=== PATIENT | male | born 1940 | race Caucasian/White ===

== ENCOUNTER 2019-05-19 07:37 | Inpatient (IN) ==
[2019-05-13 18:39] LABS: Appearance,Urine CLEAR; Bilirubin,Urine NEG (NEG); Color,Urine YELLOW; Culture Indicated,Urine NO; Glucose,Urine (UA) NEGATIVE (NEG); Ketones,Urine NEG (NEG); Leukocyte Esterase,Urine NEG /uL (NEG); Nitrate,Urine NEG (NEG); Protein,Urine NEG (NEG); Specific Gravity,Urine 1.023 (1.000-1.035); Urine Blood NEG mg/dL (<0.03); Urobilinogen,Urine NEG (NEG)
[2019-05-13 20:15] LABS: Basophils # (Auto) 0 K/mcL (0.0-0.3); Basophils % (Auto) 0.7 % (0.0-2.0); Eosinophils # (Auto) 0.8 K/mcL (0.0-0.7); Eosinophils % (Auto) 10.8 % (0.0-7.0); Granulocytes % (Auto) 58.7 % (38.0-78.0); Hematocrit 45.8 % (41.0-55.0); Hemoglobin 15.1 g/dL (13.5-16.5); Lymphocytes # (Auto) 1.5 K/mcL (1.5-4.8); Lymphocytes % (Auto) 21.3 % (15.5-49.0); Mean Cell Volume 89.9 fL (80.0-100.0); Mean Corpuscular HGB Conc 32.9 g/dL (31.0-36.0); Mean Platelet Volume 8.4 fL (7.4-10.4); Monocytes # (Auto) 0.6 K/mcL (0.1-0.9); Monocytes % (Auto) 8.5 % (1.0-12.0); Platelet Count 238 K/mcL (140-440); Red Cell Distribution Width 12.8 % (11.5-14.5); WBC 7.1 K/mcL (4.5-11.0)
[2019-05-13 20:45] LABS: Estimated Average Glucose(eAG) 183 mg/dL
[2019-05-13 21:24] LABS: Blood Urea Nitrogen 32 mg/dl (8-23); Calcium 10.2 mg/dl (8.6-10.4); Carbon Dioxide 22 mmol/L (22-30); Chloride 100 mmol/L (96-108); Glomerular Filtration Rate 44; Glucose 87 mg/dL (70-105)
[~2019-05-19 07:37] MED LIST: CELECOXIB 200 MG CAPSULE PO SCH; IPRATROPIUM/ALBUTEROL 3 ML AMPUL.NEB NEB PRN; PREGABALIN 75 MG CAPSULE PO SCH; SCOPOLAMINE 1 PATCH PATCH TOPICAL PRN; ceFAZolin 2 GM in DEXTROSE 5% IN WATER 50 ML IV SCH; oxyCODONE 10 MG TAB.ER.12H PO SCH
[2019-05-19] MEDS ORDERED: BUPIVACAINE W/EPI 0.5% 50 ML VIAL IJ ONE (11:11)
[2019-05-19] MEDS ORDERED: TRANEXAMIC ACID 1,000 MG/10 ML VIAL IV ONE (11:15)
[2019-05-19] MEDS ORDERED: KETAMINE 100 MG/ML ML IV ONE (11:15)
[2019-05-19] MEDS ORDERED: DEXAMETHASONE 10 MG/ML VIAL IV ONE (11:15)
[2019-05-19] MEDS ORDERED: SUCCINYLCHOLINE 20 MG/ML ML IV ONE (11:15)
[2019-05-19] MEDS ORDERED: PHENYLEPHRINE 10 MG/ML VIAL IV ONE (11:15)
[2019-05-19] MEDS ORDERED: PROPOFOL 200 MG/20 ML VIAL IV ONE (11:15)
[2019-05-19] MEDS ORDERED: GLYCOPYRROLATE 0.2 MG/ML VIAL IV ONE (11:15)
[2019-05-19] MEDS ORDERED: fentaNYL 250 MCG/5 ML VIAL IV ONE (11:15)
[2019-05-19] MEDS ORDERED: ePHEDrine 50 MG/ML AMPUL IV ONE (11:15)
[2019-05-19] MEDS ORDERED: LIDOCAINE HCL/PF 100 MG/5 ML SYRINGE IV ONE (11:15)
[2019-05-19] MEDS ORDERED: ONDANSETRON 4 MG/2 ML VIAL IV ONE (11:15)
[2019-05-19] MEDS ORDERED: IPRATROPIUM/ALBUTEROL 3 ML AMPUL.NEB NEB PRN (12:33)
[2019-05-19] MEDS ORDERED: diphenhydrAMINE 50 MG/ML VIAL IV PRN (12:33)
[2019-05-19] MEDS ORDERED: PROMETHAZINE 25 MG/ML VIAL IV PRN (12:33)
[2019-05-19] MEDS ORDERED: FLUMAZENIL 0.1 MG/ML ML IV PRN (12:33)
[2019-05-19] MEDS ORDERED: MEPERIDINE 25 MG/ML SYRINGE IV PRN (12:33)
[2019-05-19] MEDS ORDERED: ONDANSETRON 4 MG/2 ML VIAL IV PRN ×2 (12:33→13:11)
[2019-05-19] MEDS ORDERED: NALOXONE HCL 0.4 MG/ML VIAL IV PRN (12:33)
[2019-05-19] MEDS ORDERED: METHOCARBAMOL 1,000 MG/10 ML VIAL IV PRN (12:33)
[2019-05-19] MEDS ORDERED: BENZOCAINE/MENTHOL 1 LOZENGE PO PRN ×2 (12:33→13:11)
[2019-05-19] MEDS ORDERED: ACETAMINOPHEN 1,000 MG/100 ML BOTTLE IV ONE (12:33)
[2019-05-19] MEDS ORDERED: LACTATED RINGERS 250 ML IV PRN (12:33)
[2019-05-19] MEDS ORDERED: LACTATED RINGERS 1,000 ML IV SCH (12:45)
[2019-05-19] MEDS ORDERED: POLYETHYLENE GLYCOL 3350 17 GM PACKET PO PRN (13:11)
[2019-05-19] MEDS ORDERED: MAGNESIUM HYDROXIDE 30 ML ORAL.SUSP PO PRN (13:11)
[2019-05-19] MEDS ORDERED: TRANEXAMIC ACID 1,000 MG/10 ML VIAL IV SCH (13:11)
[2019-05-19] MEDS ORDERED: FLEETS ADULT ENEMA PR PRN (13:11)
[2019-05-19] MEDS ORDERED: HYDROmorphone 2 MG/ML VIAL IV PRN (13:11)
[2019-05-19] MEDS ORDERED: BISACODYL 10 MG SUPP.RECT PR PRN (13:11)
[2019-05-19] MEDS ORDERED: KETOROLAC 15 MG/ML VIAL IV PRN (13:11)
--- NOTE | 2019-05-19 13:11 | Brief Operative Note ---
Date of procedure: 05/19/19 Pre-op diagnosis: R shoulder massive irrepairable RTC tear, biceps tendonopathy Post-op diagnosis: same Procedure: 1)R reverse total shoulder arthroplasty 2)biceps tenodesis Grafts/Implants: Yes (Tornier 6 long stem, 0 tray, 6mm insert, 25 lat base, 36 inf off gleno) Anesthesia: GETA Findings: absent cuff Complications: none Surgeon: Maikel Martin Small Electric Engine Technician: Rommel Craig Estimated blood loss (cc): 300 Condition: stable Disposition: PACU
[2019-05-19] MEDS ORDERED: DEXTROSE 31 GM ORAL.SUSP PO PRN (13:15)
[2019-05-19] MEDS ORDERED: DEXTROSE 50% 50 ML VIAL IV PRN (13:15)
[2019-05-19] MEDS: fentaNYL 100 MCG/2 ML VIAL IV PRN ×4 (13:45→14:05)
--- NOTE | 2019-05-19 14:35 | XRay Report ---
CLINICAL INFORMATION: Post-OP Total Shoulder COMPARISON: None. FINDINGS: Total shoulder prostheses is anatomically aligned. No osseous abnormality. Soft tissue swelling noted IMPRESSION: Negative Interpreted and Authenticated by: Devang Warren 05/19/19
[2019-05-19] MEDS ORDERED: diphenhydrAMINE 50 MG/ML VIAL IV ONE (14:38)
[2019-05-19] MEDS: 0.9 % SODIUM CHLORIDE 1,000 ML IV SCH (14:40)
[2019-05-19] MEDS: 0.9 % SODIUM CHLORIDE 10 ML SYRINGE IV SCH ×2 (15:09→22:37)
[2019-05-19] MEDS: INSULIN LISPRO 1 UNIT/0.01 ML UNIT SQ SCH ×2 (16:47→21:29)
[2019-05-19] MEDS: HYDROCODONE/APAP 7.5/325MG TABLET PO PRN ×2 (16:48→21:21)
[2019-05-19] MEDS ORDERED: metFORMIN 500 MG TABLET PO SCH (17:30)
[2019-05-19] MEDS: ceFAZolin 1 GM VIAL IV SCH (20:11)
[2019-05-19] MEDS ORDERED: SENNOSIDES 1 TABLET PO SCH (21:00)
[2019-05-19] MEDS: DOCUSATE SODIUM 100 MG CAPSULE PO SCH (21:20)
[2019-05-20] MEDS: ceFAZolin 1 GM VIAL IV SCH (03:04)
[2019-05-20] MEDS: 0.9 % SODIUM CHLORIDE 1,000 ML IV SCH ×2 (04:21→09:50)
[2019-05-20] MEDS: HYDROCODONE/APAP 7.5/325MG TABLET PO PRN (04:41)
[2019-05-20] MEDS: 0.9 % SODIUM CHLORIDE 10 ML SYRINGE IV SCH (05:44)
[2019-05-20] MEDS: INSULIN LISPRO 1 UNIT/0.01 ML UNIT SQ SCH (07:32)
--- NOTE | 2019-05-20 07:49 | Discharge Summary ---
Providers - Providers Patient information: Note initiated : 05/20/19 at 7:45 am Service Date, if different from initiated Date: [] Patient: Dillon Kearns 78 y/o M admitted on 05/19/19 for Right Reverse Total Shoulder Arthroplasty. Chief Complaint: [] Discharge date: 05/20/19 Hospitalization Hospital Course: Pt was admitted for a R Reverse total shoulder arthroplasty. Pt underwent the procedure on the day of admission. Pt was transferred to the floor for IV pain meds, IV abx and PT. Pt will attend out-pt PT. F/u in 2 weeks. Discharge diagnosis: R shoulder rotator cuff arthropathy Exam - Exam Clean and dry: Yes Weight bearing status: none Ortho Discharge - TSA - Patient Instructions Diet: Regular Diet Activity: activity as tolerated Total Shoulder Protocol: Leave immobilizer in place except for bathing and ROM. Abduction pillow. Continue to wear sling until seen by physician. Codman Pendulum : These exercises use momentum produced by your body to move your shoulder joint. Bend your knees and shift your weight to your front leg, then back, allowing your arm to swing in the same directions. Using the same technique, alternately shift your weight between your right and left legs, allowing your arm to swing from side to side. These exercises are also performed in counterclockwise and clockwise circular motions. Typically these exercises are performed several times per day, for a set number repetitions or minutes, such as 20 times in a row or 5 minutes at a time. Dressing Care: May shower in 2 days - Follow Up Plan Follow Up Appointments: Rommel Craig PA-C [Physician Wellness Trainer] - Disposition: Home, Self-Care Prognosis: Good Rehab Potential: Good Overall status at discharge: patient is progressing back to baseline - Orders For Discharge Prescriptions: Hydrocodone/APAP 7.5/325Mg [Tovey 7.5-325Mg] 1 - 2 tab PO Q4HP PRN #75 tab PRN Reason: Per Pain Protocol Prescription Printed Pending Studies Resuscitation Status Full Code Diet Consistent Carbohydrate Diet Start FriMay 19 1316 Hydrocodone Bitart/Acetaminophen (Tovey 7.5/325mg) 0 tab PO Q4HP PRN; Protocol PRN Reason: Per Pain Protocol Last Admin: 05/20/19 04:41 Dose: 1 tab Documented by: Admin: 12/18/19 21:21 Dose: 1 tab Documented by: Admin: 05/19/19 16:48 Dose: 1 tab Documented by: SHERIF Diagnostic Test (Pha) (Accu-Chek) 1 each FS [facility] Last Admin: 05/20/19 07:32 Dose: 1 each Documented by: Admin: 05/19/19 21:27 Dose: 1 each Documented by: Admin: 05/19/19 16:46 Dose: 1 each Documented by: SHERIF Docusate Sodium (Colace) 100 mg PO BID [facility] Last Admin: 05/19/19 21:20 Dose: 100 mg Documented by: JERONIMO Sodium Chloride (Sodium Chloride 0.9%) 1,000 mls @ 100 mls/hr IV .Q10H [facility] Last Admin: 05/20/19 04:21 Dose: Not Given Documented by: Infusion: 05/20/19 01:00 Dose: 0 mls/hr Documented by: Admin: 05/19/19 14:40 Dose: 100 mls/hr Documented by: TYLER Insulin Human Lispro (Humalog) 0 unit SQ [facility]; Protocol Last Admin: 05/20/19 07:32 Dose: 2 units Documented by: Admin: 05/19/19 21:29 Dose: 8 units Documented by: Admin: 05/19/19 16:47 Dose: 4 units Documented by: SHERIF Ketorolac Tromethamine (Toradol) 15 mg IV Q6HP PRN; Protocol PRN Reason: Per Pain Protocol Stop: 05/21/19 13:13 Last Admin: 05/19/19 13:49 Dose: 15 mg Documented by: RENAN Metformin HCl (Glucophage) 500 mg PO QAMCC [facility] Last Admin: 05/20/19 07:32 Dose: 500 mg Documented by: JUSTA Metformin HCl (Glucophage) 1,000 mg PO QPMCC [facility] Last Admin: 05/19/19 16:48 Dose: 1,000 mg Documented by: SHERIF Senna (Senokot) 2 tab PO HS [facility] Last Admin: 05/19/19 21:20 Dose: 2 tab Documented by: JERONIMO Sodium Chloride (Saline Flush) 10 ml IV Q8 [facility] Last Admin: 05/20/19 05:44 Dose: Not Given Documented by: Admin: 05/19/19 22:37 Dose: Not Given Documented by: Admin: 05/19/19 15:09 Dose: Not Given Documented by: SHERIF Shift Summary 05/19/19 16:16 Shift Summary by Freddie North Pt back from surgery a little before 1500, came back pretty drowsy but able to awaken easily. Pt did get a total of 100 of fentanyl in recovery and robaxin, no block given. Pt has hx of dermatitis given benadryl once back to floor. On 2L NC For sleepiness post operative once fully awake will be able to wean off. B.S last for 340, SCD's in place, NS infusing at 100/hr. will update at bedside. Initialized on 05/19/19 16:16 - END OF NOTE
--- NOTE | 2019-05-20 07:49 | Operative Note ---
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 PROCEDURE PERFORMED: 1. Right reverse total shoulder arthroplasty placing a Tornier perform size 6 long humeral stem, a low offset 0 thickness tray with a 6 mm polyethylene insert with a 25 mm +3 lateralized glenoid baseplate and a 36 mm inferior offset, 36 glenosphere. 2. Biceps tenodesis. SURGEON: Maikel Martin MD ACCOUNTANT CONTROLLER: Leighton Craig PA-C. This provider's expertise and technical skill were required throughout the case. The PA assisted with preoperative coordination, intraoperative retraction, wound closure, dressing and splint application, as well as postoperative documentation and care coordination. ANESTHESIA: General. DRAINS: None. SPECIMENS: Humeral head fragment which was discarded. BLOOD LOSS: 300 mL COMPLICATIONS: None. POSTOPERATIVE CONDITION: Stable. INDICATIONS FOR SURGERY: This is a 78-year-old male who has a long history of shoulder pain and weakness. MRI showed large chronic retracted rotator cuff tear with rotator cuff atrophy. FINDINGS AT SURGERY: He did have near absent cuff, although the subscapularis, about 2/3 of it, was still intact. Post-implantation, implants were stable throughout range of motion. DESCRIPTION OF PROCEDURE: The patient had been seen in preoperative holding and informed consent had been obtained after discussion of risks and benefits of surgery. Risks including, but not limited to, bleeding, possibly requiring transfusion; infection, possibly requiring implant removal and prolonged IV antibiotics; injury to nerves, blood vessels, other surrounding structures; anesthetic risks; incomplete or no resolution of symptoms; dislocation; fracture, stiffness, pain, possibility of needing further surgery. The patient understood and wished to proceed. Correct operative site was marked in preoperative holding and the patient was taken to the operating room and general anesthesia induced. Patient was carefully positioned in the beach chair position and pressure points carefully padded. The operative shoulder and upper extremity were then carefully prepped and draped in normal sterile fashion and a timeout was performed verifying patient name, operative site, and plan. Ioban was used to cover all skin surfaces and a standard deltopectoral incision was made with a scalpel through skin and subcutaneous tissue. We continued careful blunt dissection down onto the cephalic vein. IrriSept was irrigated and then careful blunt dissection was taken down through the interval and the subdeltoid space was developed with blunt finger dissection. Cabrera deltoid retractor was placed and then the lateral edge of the conjoint tendon identified and blue handle retractor placed underneath. We then released the biceps tendon and then did a lesser tuberosity osteotomy. A traction stitch was placed around it and then the humeral head was dislocated out anteriorly. Osteophytes were removed with an osteotome and then a cut guide used to make our humeral head cut along anatomic neck. We then used an awl to start down the canal and then sounders were used to increase until appropriate size was met. We then sequentially broached up to the appropriate size, which left the broach at the approximate head cut level. A calcar planer was used for any overhanging bone and then a cut protector was placed. We then exposed the glenoid. Labrum was excised circumferentially and capsule was carefully released around the inferior glenoid. I then used a 10 degree cephalad angle drill guide placed at the inferior margin of the glenoid to place our guide pin. We then used the 25 reamer to ream until we had cancellous bone on the inferior half and had just contacted bone on the superior half. We did irrigate with IrriSept and after a minute pulse lavaged with saline. Our central peg was reamed and then our baseplate was placed after drilling and depth gauging our central screw. We then placed a screw in the baseplate, advancing it to the glenoid until it had been fully compressed. We then drilled and placed our four peripheral screws, the superior and inferior locking, the anterior and posterior nonlocking. A glenosphere was then opened and carefully impacted onto the baseplate. The screw was advanced and tightened. We then re-exposed the proximal humerus. We trialled with the above implant trials and reduced the shoulder. This had excellent tension, so we redislocated and removed the trial implants. Definitive implants were opened and assembled on the backtable. The humeral canal was irrigated with IrriSept. After a minute we pulse lavaged with saline and then the implant construct was impacted on the humeral canal until it had fully seated. We then reduced the shoulder with good tension. Range of motion was checked and it was very stable. We irrigated again with IrriSept and after a minute we irrigated with saline and then the subscapularis was repaired through bone holes with a #2 FiberWire [id number]-jo-oazom over top of the osteotomized fragment. Biceps was tenodesed, soft tissue and then proximal stump amputated. The deltopectoral interval was closed with a running #1 Vicryl stitch and then a final IrriSept irrigation done, after a minute final pulse lavage, and then 2-0 Monocryl used for subcutaneous and nicki for skin. Xeroform sterile dressings were applied. Arm was placed in an abductor immobilizer and patient was awakened, extubated, and transferred to recovery in stable condition. [id number] Job ID: [id number] Doc ID: [id number] Maikel Martin MD
[2019-05-20] MEDS ORDERED: metFORMIN 500 MG TABLET PO SCH (08:00)
[2019-05-20] MEDS: DOCUSATE SODIUM 100 MG CAPSULE PO SCH (08:14)
[2019-05-20] MEDS ORDERED: MULTIVIT,THER IRON,CA,FA & MIN 1 TABLET PO SCH (09:00)
[2019-05-20] MEDS ORDERED: ASPIRIN 81 MG TAB.CHEW PO SCH (09:00)
== END 2019-05-20 10:42 | disposition home or self-care (01) | DRG 483 ==
LOC: MEDSUR 07:37
PROVIDERS: ADMIT Orthopaedic Surgery; ATTEND Orthopaedic Surgery